=== PATIENT | male | born 1990 | race Caucasian/White ===

== ENCOUNTER 2016-09-30 13:25 | Emergency (ER) | payer OTHER ==
--- NOTE | 2016-09-30 16:31 | UC ---
FLU HPI - HPI Summary HPI Summary: began feeling badly yesterday sore throat ear ache cough chills - History of Current Complaint Stated Complaint: SORE THROAT,COUGH Time Seen by Provider: 09/30/16 16:15 Hx Obtained From: Patient Onset/Duration: Sudden Onset, Lasting Days - 1, Still Present Severity Currently: Moderate Severity Initially: Moderate Pain Intensity: 5 Pain Scale Used: 0-10 Numeric Associated Signs & Symptoms: Positive: Fever, Myalgia, Cough, Sore Throat, Nasal Congestion, Headache - Allergy/Home Medications Allergies/Adverse Reactions: Allergies Allergy/AdvReac Type Severity Reaction Status Date / Time No Known Allergies Allergy Verified 06/09/16 12:15 Home Medications: Home Medications NK [No Home Medications Reported] 09/30/16 [History Confirmed 09/30/16] PMH/Surg Hx/FS Hx/Imm Hx Previously Healthy: Yes Endocrine History Of: Denies: Diabetes Cardiovascular History Of: Denies: Cardiac Disorders Respiratory History Of: Denies: COPD GI/ History Of: Denies: Gastroesophageal Reflux Neurological History Of: Denies: TIA Psychological History Of: Denies: Anxiety - Surgical History Surgical History: Yes Surgery Procedure, Year, and Place: Left elbow - Family History Known Family History: Positive: Other - denies FMh conjunctivitis - Social History Occupation: Employed Full-time - in a correctional facility Lives: With Family Alcohol Use: Occasionally Substance Use Type: None Smoking Status (MU): Never Smoked Tobacco Type: Smokeless Tobacco Amount Used/How Often: every other day Length of Time of Smoking/Using Tobacco: 2-3 yrs Review of Systems Constitutional: Chills, Fatigue Skin: Negative Eyes: Negative ENT: Sore Throat, Ear Ache, Nasal Discharge Respiratory: Cough Cardiovascular: Negative Gastrointestinal: Negative Genitourinary: Negative Motor: Negative Neurovascular: Negative Musculoskeletal: Arthralgia, Myalgia Neurological: Headache Psychological: Negative All Other Systems Reviewed And Are Negative: Yes Physical Exam Triage Information Reviewed: Yes Appearance: Well-Appearing, No Pain Distress, Well-Nourished Vital Signs Reviewed: Yes Eye Exam: Normal Eyes: Positive: Conjunctiva Clear ENT Exam: Normal ENT: Positive: Normal ENT inspection, Hearing grossly normal, Pharyngeal erythema, Nasal congestion, Nasal drainage, TMs normal. Negative: Tonsillar swelling, Tonsillar exudate, Trismus, Muffled/hoarse voice Dental Exam: Normal Neck exam: Normal Neck: Positive: Supple, Nontender, No Lymphadenopathy Respiratory Exam: Normal Respiratory: Positive: Chest non-tender, Lungs clear, Normal breath sounds, No respiratory distress, No accessory muscle use Cardiovascular Exam: Normal Cardiovascular: Positive: RRR, No Murmur, Pulses Normal, Brisk Capillary Refill Musculoskeletal Exam: Normal Musculoskeletal: Positive: Strength Intact, ROM Intact, No Edema Neurological Exam: Normal Neurological: Positive: Alert, Muscle Tone Normal Psychological Exam: Normal Skin Exam: Normal Diagnostics - Laboratory Diagnostic Studies Completed/Ordered: Strep (-), Flu A (+) Flu Course/Dx - Course Course Of Treatment: increase fluids, rest ibuprofen - Differential Dx/Diagnosis Differential Diagnosis/HQI/PQRI: Influenza, RSV, Upper Respiratory Infection Provider Diagnoses: Influenza A Discharge - Discharge Plan Condition: Stable Disposition: HOME Patient Education Materials: Decongestant/Expectorant (By mouth), Ibuprofen ( By mouth), Influenza (ED) Forms: *Work Release Referrals: [facility]FERR[facility] [Outside] - If Needed No Primary Care Phys,NOPCP [Primary Care Provider] -
[2016-09-30 16:59] VITALS: BP 127/57
[2016-09-30] MEDS ORDERED: Oseltamivir CAP* 75 MG PO ONE (17:41)
== END 2016-09-30 17:19 | disposition home or self-care (01) ==
LOC: UCCORT 13:25
DX: J09.X2 Influenza due to identified novel influenza A virus with other respiratory manifestations (principal); M79.1 Myalgia; R50.9 Fever, unspecified; F17.210 Nicotine dependence, cigarettes, uncomplicated
CPT/HCPCS: 87502; 87651; 99212; A9270-GY; G0463

== ENCOUNTER 2017-01-27 07:16 | Emergency (ER) | payer OTHER ==
--- NOTE | 2017-01-27 07:58 | UC ---
Abdominal Pain Male HPI - History of Current Complaint Chief Complaint: UCGI Stated Complaint: NAUSEA Time Seen by Provider: 01/27/17 07:39 Hx Obtained From: Patient Onset/Duration: Sudden Onset - yesterday with nausea and sweats. With abdominal pain in the epigastrium., Still Present, Worse Since - overnight. Severity Initially: Moderate Severity Currently: Moderate Location: Epigastric Character: Aching, Cramping Aggravating Factor(s):: Movement Alleviating Factor(s): Rest Associated Signs And Symptoms: Positive: Dizzy - felt lightheaded., Decreased Appetite, Nausea. Negative: Constipation, Blood in Stool, Diarrhea - Risk Factors Testicular Torsion: Negative Cardiac Risk Factors: Negative - Allergies/Home Medications Allergies/Adverse Reactions: Allergies Allergy/AdvReac Type Severity Reaction Status Date / Time No Known Allergies Allergy Verified 01/27/17 07:24 PMH/Surg Hx/FS Hx/Imm Hx Previously Healthy: Yes Other History Of: Negative For: HIV - Surgical History Surgical History: Yes Surgery Procedure, Year, and Place: Left elbow - Family History Known Family History: Positive: Other - denies FMh conjunctivitis Negative: Cardiac Disease, Hypertension, Diabetes - Social History Occupation: Employed Full-time Lives: Alone - with girlfriend Alcohol Use: None Substance Use Type: None Smoking Status (MU): Never Smoked Tobacco Type: Smokeless Tobacco Amount Used/How Often: every other day Length of Time of Smoking/Using Tobacco: 2-3 yrs Have You Smoked in the Last Year: No Review of Systems Constitutional: Chills - sweats Gastrointestinal: Abdominal Pain Musculoskeletal: Myalgia Neurological: Headache - dull persistent pain. All Other Systems Reviewed And Are Negative: Yes Physical Exam Triage Information Reviewed: Yes Appearance: Well-Nourished, Ill-Appearing - mild, Pain Distress - mild Vital Signs: Initial Vital Signs Temp 99.3 F 01/27/17 07:25 Pulse 86 01/27/17 07:25 Resp 16 01/27/17 07:25 BP 132/53 01/27/17 07:25 Pulse Ox 97 01/27/17 07:25 Vital Signs Reviewed: Yes Eyes: Positive: Conjunctiva Clear ENT: Positive: Pharynx normal, Nasal congestion, TMs normal Neck exam: Normal Respiratory: Positive: Lungs clear Cardiovascular Exam: Normal Abdomen Description: Positive: No Organomegaly, Soft. Negative: Nontender - epigastric tenderness, McBurney's Point Tenderness Musculoskeletal Exam: Normal Neurological Exam: Normal Psychological Exam: Normal Skin Exam: Normal Abd Pain Male Course/Dx - Differential Dx/Clinical Impression Differential Diagnosis/HQI/PQRI: Appendicitis, Gall Bladder Disease, Pancreatitis Provider Diagnoses: Epigastric abdominal pain Discharge - Discharge Plan Condition: Stable Disposition: HOME Prescriptions: Famotidine [Pepcid] 20 mg PO BID PRN #60 tab PRN Reason: Heartburn Ondansetron ODT TAB* [Zofran 4 MG Odt TAB*] 4 mg PO Q6H PRN #14 tab.odt PRN Reason: Nausea/Vomiting Forms: *Work Release Additional Instructions: Follow up with family physician if not better in 2 days. Consider abdominal ultrasound and stool test for Helicobacter pylori.
[2017-01-27] MEDS ORDERED: Ondansetron ODT TAB* 4 MG PO ONE (08:08)
[2017-01-27 08:34] VITALS: BP 102/58
[2017-01-27 13:55] LABS: Albumin 4.8 g/dL (3.2-5.2); BUN/Creatinine Ratio 16.2 (8-20); Calcium 9.6 mg/dL (8.6-10.3); EGFR African American 82.1 (>60); EGFR Non-African American 63.8 (>60); Potassium 3.6 mmol/L (3.5-5.0); Total Protein 6.8 g/dL (6.4-8.9)
== END 2017-01-27 08:38 | disposition home or self-care (01) ==
LOC: UCCORT 07:16
DX: R10.13 Epigastric pain (principal); Z87.891 Personal history of nicotine dependence
CPT/HCPCS: 36415; 80053; 83690; 99212; A9270-GY; G0463

== ENCOUNTER 2017-03-26 12:42 | Emergency (ER) | payer BC, OTHER ==
[2017-03-26 13:14] VITALS: BP 118/62
--- NOTE | 2017-03-26 13:17 | UC ---
FLU HPI - HPI Summary HPI Summary: 27 y/o with malaise, abdominal upset x 2 days, sore throat x 24 hours. Patient called off work today, needs work note. possible tatile fever last night, no SOB, cough, no ear pain. no PMH, no meds - History of Current Complaint Chief Complaint: UCRespiratory Stated Complaint: SORE THROAT,NAUSEA Time Seen by Provider: 03/26/17 13:16 Hx Obtained From: Patient Onset/Duration: Sudden Onset, Lasting Days, Still Present Severity Currently: Mild Severity Initially: Mild - Allergy/Home Medications Allergies/Adverse Reactions: Allergies Allergy/AdvReac Type Severity Reaction Status Date / Time No Known Allergies Allergy Verified 03/26/17 13:14 Home Medications: Home Medications NK [No Home Medications Reported] 03/26/17 [History Confirmed 03/26/17] PMH/Surg Hx/FS Hx/Imm Hx Previously Healthy: Yes Other History Of: Negative For: HIV - Surgical History Surgical History: Yes Surgery Procedure, Year, and Place: Left elbow - Family History Known Family History: Positive: Other - denies FMh conjunctivitis Negative: Cardiac Disease, Hypertension, Diabetes - Social History Alcohol Use: None Substance Use Type: None Smoking Status (MU): Never Smoked Tobacco Type: Smokeless Tobacco Amount Used/How Often: every other day Length of Time of Smoking/Using Tobacco: 2-3 yrs Have You Smoked in the Last Year: No Review of Systems Constitutional: Fatigue ENT: Sore Throat Gastrointestinal: Nausea All Other Systems Reviewed And Are Negative: Yes Physical Exam Triage Information Reviewed: Yes Appearance: No Pain Distress, Well-Nourished, Ill-Appearing - mild Vital Signs: Initial Vital Signs Temp 98.8 F 03/26/17 13:10 Pulse 62 03/26/17 13:10 Resp 14 03/26/17 13:10 BP 118/62 03/26/17 13:10 Pulse Ox 98 03/26/17 13:10 Vital Signs Reviewed: Yes Eyes: Positive: Conjunctiva Clear ENT: Positive: Pharyngeal erythema - mild no exudates no tonsillar swelling, TM bulging - fluid levels b/l Neck: Positive: Supple, Nontender, Enlarged Nodes @ - submandib, mild Respiratory: Positive: Chest non-tender, Lungs clear, Normal breath sounds, No respiratory distress, No accessory muscle use Cardiovascular: Positive: RRR, No Murmur Abdomen Description: Positive: Nontender, No Organomegaly, Soft Neurological Exam: Normal Skin Exam: Normal Flu Course/Dx - Course Course Of Treatment: URI, likely viral, rest, increase fluids, work note writen - Differential Dx/Diagnosis Differential Diagnosis/HQI/PQRI: Broncholiolitis, Influenza, RSV, Upper Respiratory Infection Provider Diagnoses: upper respiratory infection Discharge - Discharge Plan Condition: Good Disposition: HOME Patient Education Materials: Upper Respiratory Infection (ED) Forms: *Work Release Referrals: No Primary Care Phys,NOPCP [Primary Care Provider] - Additional Instructions: - Increase rest, fluids - Return to ER/ UC with neck pain, fever, chills, headache or worsening symptoms - Tylenol/ motrin as needed for pain/ fever - Work note x 24 hours
== END 2017-03-26 13:47 | disposition home or self-care (01) ==
LOC: UCCORT 12:42
DX: J06.9 Acute upper respiratory infection, unspecified (principal); Z72.0 Tobacco use
CPT/HCPCS: 99211; G0463